=== PATIENT | male | born 1960 | race Caucasian/White ===

== ENCOUNTER 2022-02-20 13:10 | Emergency (ER) | payer OTHER ==
[~2022-02-20] VITALS: Ht 177.8 cm; Wt 120.5 kg
[2022-02-20 14:51] LABS: BASOPHILS % (AUTO) 0.4 % (0.0-2.0); EOSINOPHILS % (AUTO) 1.3 % (1.0-6.0); HEMATOCRIT 42.8 % (41-53); HEMOGLOBIN 14.4 g/dL (13.5-17.5); LYMPHOCYTES # (AUTO) 1.6 K/uL (1.0-4.8); LYMPHOCYTES % (AUTO) 25.7 % (22.0-44.0); MEAN CORPUSCULAR HEMOGLOBIN 29.5 pg (26.0-34.0); MEAN CORPUSCULAR HGB CONC 33.6 G/dL (31.0-37.0); MEAN CORPUSCULAR VOLUME 88 fL (80-100); MONOCYTES # (AUTO) 0.5 K/uL (0.1-1.0); MONOCYTES % (AUTO) 7.8 % (2.0-9.0); NEUTROPHILS # (AUTO) 4.1 K/uL (1.8-7.7); NEUTROPHILS % (AUTO) 64.8 % (40.0-70.0); PLATELET COUNT (AUTO) 261 K/uL (150-450); RED BLOOD CELL COUNT(AUTO) 4.88 MIL/uL (4.50-5.90); RED CELL DISTRIBUTION WIDTH 15.2 % (11.5-14.5)
[2022-02-20 15:01] LABS: ANION GAP 8 mmol/L (8-16); CALCIUM, TOTAL 9.4 mg/dL (8.8-10.5); CARBON DIOXIDE 30 mmol/L (22-29); CHLORIDE 102 mmol/L (98-107); CREATININE 0.92 mg/dL (0.60-1.30); GLUCOSE,RANDOM 88 mg/dL (70-110); POTASSIUM 4.1 mmol/L (3.5-5.1); SODIUM SERUM 140 mmol/L (136-145); UREA NITROGEN, BLOOD 15 mg/dL (7-18)
[2022-02-20 15:04] LABS: GLOMERULAR FILTR. RATE CALC > 60 mL/min (>60)
[2022-02-20 15:08] LABS: ALANINE AMINOTRANSFERASE 36 U/L (12-78); ALBUMIN 4.2 g/dL (3.4-5.0); ALKALINE PHOSPHATASE 114 U/L (46-116); ASPARTATE AMINOTRANSFERASE 42 U/L (15-37); BILIRUBIN,TOTAL 0.5 mg/dL (0.1-1.0); TOTAL PROTEIN, SERUM 7.6 g/dL (6.4-8.2)
[2022-02-20 15:09] LABS: ACETAMINOPHEN < 2 mcg/mL (10-30)
[2022-02-20 15:17] LABS: SALICYLATE 0.5 mg/dL (2.8-20.0)
[2022-02-20 15:57] LABS: COVID AG,FIA SOURCE NASOPHARYNGEAL
[2022-02-20 18:19] LABS: AMPHET/METH SCREEN,URINE NEGATIVE (NEGATIVE); BARBITURATE SCREEN, URINE NEGATIVE (NEGATIVE); BENZODIAZEPINES SCREEN,URINE NEGATIVE (NEGATIVE); CANNABINOID SCREEN,URINE NEGATIVE (NEGATIVE); COCAINE SCREEN,URINE NEGATIVE (NEGATIVE); METHADONE SCREEN, URINE NEGATIVE (NEGATIVE); OPIATE SCREEN,URINE NEGATIVE (NEGATIVE)
[2022-02-20 18:20] LABS: PHENCYCLIDINE SCREEN,URINE NEGATIVE (NEGATIVE)
[2022-02-20] MEDS ORDERED: GABA-1181 PO (19:47)
[2022-02-20] MEDS ORDERED: ATOR20TA86 PO (19:47)
[2022-02-20] MEDS ORDERED: CLON-595 PO (19:47)
[2022-02-20] MEDS ORDERED: METO50 PO (19:47)
[2022-02-20] MEDS ORDERED: AMOX1TAB15 PO (19:47)
[2022-02-20] MEDS ORDERED: DULO-114 PO (19:47)
[2022-02-20] MEDS ORDERED: CYCL-397 PO (19:47)
[2022-02-20] MEDS ORDERED: ARIP2TAB3 PO (19:47)
[2022-02-20] MEDS ORDERED: LISI-661 PO (19:47)
[2022-02-20] MEDS ORDERED: TRAZ-186 PO (19:47)
[2022-02-20] MEDS ORDERED: TAMS-13 PO (19:48)
[2022-02-20] MEDS ORDERED: AMOX TR/POT CLAV 875 MG/125 MG TABLET PO ONE (20:00)
[2022-02-20] MEDS ORDERED: METO-558 PO (20:04)
[2022-02-20] MEDS ORDERED: LISI-657 PO (20:04)
[2022-02-20] MEDS ORDERED: CLON-592 PO (20:04)
[2022-02-21 00:22] VITALS: BP 120/84
== END 2022-02-21 02:33 | disposition short-term general hospital (02) ==
LOC: EMS 13:10
DX: F32.9 Major depressive disorder, single episode, unspecified (principal); R45.851 Suicidal ideations; I10 Essential (primary) hypertension; E78.00 Pure hypercholesterolemia, unspecified; Z20.822 Contact with and (suspected) exposure to COVID-19
CPT/HCPCS: 36415; 80053; 80307; 85025; 87426; 99285; G0480; G0481